=== PATIENT | male | born 1990 | race African-American/Black ===

== ENCOUNTER → 2018-08-10 | Outpatient (CLI) | payer OTHER | LOC: M RAD 09:22 | DX: M54.5 Low back pain (principal) ==

== ENCOUNTER 2020-11-06 18:19 | Inpatient (IN) | payer OTHER ==
[~2020-11-06] VITALS: Ht 185.4 cm; Wt 100.1 kg
[2020-11-06 18:56] LABS: BASO # 0.1 10^3/uL (0.0-0.2); BASO % 0.3 % (0.0-1.0); EOS # 0.1 10^3/uL (0.0-0.5); EOS % 0.5 % (0.0-3.0); HEMATOCRIT 48.8 % (42.0-52.0); HEMOGLOBIN 16.2 g/dl (13.5-17.5); LYMPH # 2.9 10^3/uL (1.5-5.0); LYMPH % 19.2 % (24.0-44.0); MEAN CORPUSCULAR HEMOGLOBIN 29.5 pg (27.0-33.0); MEAN CORPUSCULAR HGB CONC 33.2 g/dl (32.0-36.5); MEAN CORPUSCULAR VOLUME 88.9 fl (80.0-96.0); MONO # 2.2 10^3/uL (0.0-0.8); MONO % 14.4 % (0.0-5.0); NEUTROPHILS % 65.1 % (36.0-66.0); PLATELET COUNT, AUTOMATED 328 10^3/uL (150-450); RED BLOOD COUNT 5.49 10^6/uL (4.30-6.10); WHITE BLOOD COUNT 15.3 10^3/uL (4.0-10.0)
[2020-11-06] MEDS ORDERED: ISOVUE-370 76% 100ML VIAL As Ordered ONE (19:33)
--- NOTE | 2020-11-06 20:47 | REPVR ---
PROCEDURE INFORMATION: Exam: CT Neck With Contrast Exam date and time: 11/06/2020 7:43 PM Age: 30 years old Clinical indication: Throat pain; Additional info: Throat pain; Covid positive TECHNIQUE: Imaging protocol: Computed tomography images of the neck with intravenous contrast. Radiation optimization: All CT scans at this facility use at least one of these dose optimization techniques: automated exposure control; mA and/or kV adjustment per patient size (includes targeted exams where dose is matched to clinical indication); or iterative reconstruction. Contrast material: ISOVUE 370; Contrast volume: 75 ml; Contrast route: INTRAVENOUS (IV); COMPARISON: No relevant prior studies available. FINDINGS: Nasopharynx: Unremarkable. Oropharynx: The left tonsil is enlarged and edematous. There is a thick-walled left peritonsillar abscess measuring 3.3 x 2.5 cm. Right tonsil is unremarkable. Hypopharynx: Unremarkable. Larynx: Unremarkable. Normal epiglottis. Retropharyngeal space: Unremarkable. Submandibular/Parotid glands: Normal. Glands are normal in size. Thyroid: Normal. No enlarged or calcified nodules. Lymph nodes: Mild reactive cervical lymphadenopathy. Trachea: Visualized trachea is unremarkable. Lungs: Unremarkable as visualized. Bones/joints: Unremarkable. No acute fracture. Soft tissues: Unremarkable. No significant soft tissue swelling. IMPRESSION: Acute tonsillitis with large left peritonsillar abscess. Electronically signed by: Paxton Barrow On 11/06/2020 20:46:36 PM
[2020-11-06] MEDS ORDERED: HYDROCORTISONE INJection 1,000 MG in NS 50 ML IV ONE (21:00)
[2020-11-06] MEDS ORDERED: CLINDAMYCIN 900 MG in IV 1 EA IV ONE (21:00)
[2020-11-06] MEDS ORDERED: NS 1,000 ML IV ONE (21:00)
[2020-11-06 21:12] LABS: ALBUMIN 3.7 GM/DL (3.2-5.2); ALT/SGPT 24 U/L (12-78); BILIRUBIN,DIRECT 0.2 MG/DL (0.0-0.2); BILIRUBIN,TOTAL 1.2 MG/DL (0.2-1.0); TOTAL PROTEIN 9.3 GM/DL (6.4-8.2)
[2020-11-06 21:13] LABS: ERYTHROCYTE SEDIMENTATION RATE 4 mm/hr (0-15)
[2020-11-06] MEDS ORDERED: LIDOCAINE W/EPINEPHRINE 1% 20ML VIAL SC ONE (22:00)
--- NOTE | 2020-11-06 22:42 | HPEPDOC ---
[facility] Medical History & Physical Date of Admission Nov 06, 2020 Date of Service: Nov 06, 2020 Other Provider Adán Grimes Attending Physician: LORETA MOODY MD History and Physical TIME OF SERVICE: 1125pm CHIEF COMPLAINT: sore throat HISTORY OF PRESENT ILLNESS: This 30 yr old M w a hx of peritonsillar abscess 7 yrs ago was diagnosed with COVID 19 on Oct 23 and developed a sore throat with throat swelling 4 days ago. At the time of presentation to the hospital his throat pain was 9/10 in severity and radiated to his ear; after having 5-10ml of fluid drained by the pain improved to 7/10 in severity, but he continues to feel like his throat is swollen. He denied having a runny nose, cough, fever, chills, n/v/d or any other acute c/o. REVIEW OF SYSTEMS: 12-point review of systems negative except as listed in HPI PAST MEDICAL/ SURGICAL HISTORY: Chronic HTN Heart murmur Unspecified cardiac disorder Peritonsillar abscess 7 yrs ago SOCIAL HISTORY: He smokes, drinks occasionally, has a hx of recreational drug use, & is current incarcerated. FAMILY HISTORY: DM, HTN ALLERGIES: Please see below. HOME MEDICATIONS: Please see below. PHYSICAL EXAMINATION: Vital Signs Date Time Temp Pulse Resp B/P (MAP) Pulse Ox O2 Delivery O2 Flow Rate FiO2 11/06/20 18:19 98.8 104 20 136/84 (101) 96 Room Air GENERAL APPEARANCE: well nourished / well developed HEENT: EOMI/ MMM&P / mallampati score 3 therefore unable to visualize back of throat CARDIOVASCULAR: radial pulses intact/ no BLE edema MUSCULOSKELETAL: both wrists and ankles are in handcuffs NEUROLOGICAL: voice muffled but not dysarthric PSYCHIATRIC: A&Ox 3 LABORATORY DATA: 11/06/20 18:43 Total Bilirubin 1.2H, Direct Bilirubin 0.2, Aspartate Amino Transf (AST/SGOT) 28, Alanine Aminotransferase (ALT/SGPT) 24, Alkaline Phosphatase 97, C-Reactive Protein, Quantitative 14.50H, Total Protein 9.3H, Albumin 3.7, Albumin/Globulin Ratio 0.7 11/06/20 18:43: Immature Granulocyte % (Auto) 0.5, Neutrophils (%) (Auto) 65.1, Lymphocytes (%) (Auto) 19.2L, Monocytes (%) (Auto) 14.4H, Eosinophils (%) (Auto) 0.5, Basophils (%) (Auto) 0.3, Neutrophils # (Auto) 10.0H, Lymphocytes # (Auto) 2.9, Monocytes # (Auto) 2.2H, Eosinophils # (Auto) 0.1, Basophils # (Auto) 0.1, Nucleated Red Blood Cells % (auto) 0.0, Erythrocyte Sedimentation Rate 4 11/06/20 18:45: POC Glucose (Misc Panel) 125H, POC Sodium (Misc Panel) 138, POC Potassium (Misc Panel) 5.2H, POC Chloride (Misc Panel) 103, POC Total CO2 (Misc Panel) 32.0H, PO C Blood Urea Nitrogen (Misc Panel 32H, POC Ionized Calcium (Misc Panel) 4.5, POC Creatinine (Misc Panel) 1.0, POC Hematocrit (Misc Panel) 50.0 11/06/20 20:37: Lactic Acid Level 1.2 IMAGING: CT Neck IMPRESSION: Acute tonsillitis with large left peritonsillar abscess. MICROBIOLOGY: blood cx and fluid cx results pending ASSESSMENT: is a 30 yr old w a hx of peritonsillar abscess, HTN and heart murmur who developed a soar throat 8 days after being diagnosed with COVID 19; he underwent bedside drainage of the abscess and will be admitted for IV abx and steroids pending resolution of the throat swelling. PLAN: 1. Sepsis 2/2 acute tonsillitis and left peritonsillar abscess SIRS criteria include HR of 104 and WBC # of 15.3 Lactic acid was wnl; he also had non-diabetic hyperglycemia qSOFA score = 0 He received his first dose of abx in the ER Plan: admit to PCU/ continuous pulse ox, / will ask nurse to monitor dyspnea or worsening of throat swelling / c/w Clindamycin and Decadrone / f/u blood cx and abscess fluid cx / the day time team can f/u w on when the patient can in eat, in the meanwhile I will keep him NPO with D5NS, f/u FSBS Q6H and order Toradol for pain 2. COVID 19 Diagnosed on Oct 23 qCSI score = 0 Plan: continuous pulse ox / supplemental O2 up to 3L with target O2 sats between 92-95% / contact & air borne precautions / f/u repeat plts (if low indicates bad prognosis), CRP (if high indicates bad prognosis), INR, BMP, fibrinogen, INR, D- dimer, PT, PTT (if patient has DIC indicates bad prognosis), ferritin, LDH, pr ocalcitonin (if elevated will help rule out bacterial PNA), troponins / he is not a candidate for Remdesivir or Decadron 3. Chronic HTN Plan: hold oral meds bc of throat swelling / IV enalaprilat daily DVT Px w SCDs Dispo: dc after at least 2 midnights stay Home Medications Scheduled Amlodipine Besylate (Amlodipine Besylate) 10 Mg Tablet, 10 MG PO DAILY Hydrochlorothiazide (Hydrochlorothiazide) 25 Mg Tablet, 25 MG PO DAILY Miscellaneous Medications [Patient Comment] MED REC COMPLETED VIA PHONE CALL WITH NURSE FROM [facility] Allergies Coded Allergies: No Known Allergies (Unverified , 11/06/20) A-FIB/CHADSVASC A-FIB History Current/History of A-Fib/PAF?: No Current PO Anticoag Therapy: No LORETA MOODY MD Nov 06, 2020 22:42
[2020-11-06 23:22] LABS: CPK CREATINE PHOSPHOKINASE 315 U/L (39-308); FERRITIN 420 NG/ML (26-388); LDH LACTATE DEHYDROGENASE 329 U/L (87-241); MAGNESIUM LEVEL 2.6 MG/DL (1.8-2.4); NT-PRO BNP 21 PG/ML (<125); TROPONIN I < 0.02 NG/ML (< 0.10)
[2020-11-06] MEDS ORDERED: HYDR-3490 PO (23:39)
[2020-11-06] MEDS ORDERED: AMLO1TAB25 PO (23:39)
[2020-11-06] MEDS ORDERED: PATIENT COMMENT (23:39)
--- OUTSIDE RECORDS SUMMARY | 2020-11-06 23:39 | CCD ---
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 If such information is present, then the following federally mandated warning applies: This information has been disclosed to you from records protected by federal confidentiality rules (42 CFR part 2). The federal rules prohibit you from making any further disclosure of this information unless further disclosure is expressly permitted by the written consent of the person to whom it pertains or as otherwise permitted by 42 CFR part 2. A general authorization for the release of medical or other information is NOT sufficient for this purpose. The Federal rules restrict any use of the information to criminally investigate or prosecute any alcohol or drug abuse patient.The records that you are about to access may contain highly sensitive health information, the redisclosure of which is protected by Article 27-F of the [facility] Public Health law. If you continue you may have access to information: Regarding HIV / AIDS; Provided by facilities licensed or operated by the [facility] Office of Mental Health; or Provided by the [facility] Office for People With Developmental Disabilities. If such information is present, then the following [facility] mandated warning applies: This information has been disclosed to you from confidential records which are protected by state law. State law prohibits you from making any further disclosure of this information without the specific written consent of the person to whom it pertains, or as otherwise permitted by law. Any unauthorized further disclosure in violation of state law may result in a fine or detention sentence or both. A general authorization for the release of medical or other information is NOT sufficient authorization for further disc losure. Allergies and Adverse Reactions Type Description Substance Reaction Status Data Source(s ) Drug Class NO KNOWN ALLERGIES NO KNOWN ALLERGIES [facility] Encounters Encounter Providers Location Date Indications Data Source(s ) Outpatient Attender: Obed Cano [id number] 2019 12:00:00 AM EDT - 06/15/2020 09:30:16 AM EDT Preglaucoma, unspecified, bilateral [facility] Preglaucoma, unspecified, bilateral Medications Medication Brand Name Start Date Product Form Dose Route Admi nistrative Instructions Pharmacy Instructions Status Indications Reaction Description Data Source(s) Proparacaine hydrochloride 5 MG/ML Ophth almic Solution proparacaine (ALCAINE) 0.5 % ophthalmic solution 1 drop proparacaine (ALCAINE) 0.5 % ophthalmic solution 1 drop 06/15/2020 08:15:00 AM EDT 1 [drp] Both Eyes completed 1 drop, Both Eyes, Once, Thu06/15/20 at 0815, For 1 dos e [facility] Medication administered onsite Tropicamide 10 MG/ML Ophthalmic Solution tropicamide (MYDRIACYL) 1 % ophthalmic solution 1 drop tropicamide (MYDRIACYL) 1 % ophthalmic solution 1 drop 06/15/2020 08:15:00 AM EDT 1 [drp] Both Eyes completed 1 drop, Both Eyes, Once, Thu06/15/20 at 0815, For 1 dose [facility] Medication administered onsite Phenylephrine Hydrochloride 25 MG/ML Oph thalmic Solution phenylephrine (MYDFRIN) 2.5 % ophthalmic solution 1 drop phenylephrine (MYDFRIN) 2.5 % ophthalmic solution 1 drop 06/15/2020 08:15:00 AM EDT 1 [drp] Both Eyes completed 1 drop, Both Eyes, Once, Thu06/15/20 at 0815, For 1 dos e [facility] Medication administered onsite Insurance Providers Payer name Policy type / Coverage type Policy ID Covered libertarian ID Covered libertarian's relationship to kelley Policy Kelley Plan Information [place] [employer] [id number] SP [id number] CORRECTIONS B [id number] Self [id number] [facility] DEPT.OF CORRECTIONAL O [id number] O [id number] [employer] MEDICAID [id number] Patient [id number] MEDICAID ([id number]) [id number] HMB OPTIONS (368) [id number] MEDICAID [id number] PT [id number] [employer] MEDICAID [id number] PT [id number] [employer] MED[place] [id number] PT [id number] SELF PAY SELF PAY PT SELF PAY Problems, Conditions, and Diagnoses Code Display Name Description Problem Type Effective Dates Data Source(s) H40.003 Preglaucoma, unspecified, bilateral Preglaucoma, unspecified, bilateral Diagnosis 06/15/2020 08:00:05 AM EDT [facility] Surgeries/Procedures Procedure Description Date Indications Data Source(s) COLOR FUNDUS PHOTOGRAPHY - OU - BOTH EYES COLOR FUNDU S PHOTOGRAPHY - OU - BOTH EYES Routine 06/15/2020 9:28 AM EDT Glaucoma suspect of both eyes 06/15/2020 09:28:59 AM EDT Gla ucoma suspect of both eyes [facility] Glaucoma suspect of both eyes US EXAM OF EYE THICKNESS US EXAM OF EYE THICKNESS Routine 06/15/2020 8:46 AM EDT Glaucoma suspect of both eyes 06/15/2020 08:46:33 AM EDT Gla ucoma suspect of both eyes [facility] Glaucoma suspect of both eyes POSTERIOR SEGMENT OCT (OCULAR COHERENCE TOMOGRAPHY) - OU - BOTH EYES POSTERIOR SEGMENT OCT (OCULAR COHERENCE TOMOGRAPHY) - OU - BOTH EYES Routine 06/15/2020 8:46 AM EDT Glaucoma suspect of both eyes 06/15/2020 08:46:08 AM EDT Gla ucoma suspect of both eyes [facility] Glaucoma suspect of both eyes Results ID Date Data Source [id number] 10/23/2020 12:00:00 AM EST [facility] Name Value Range Interpretation Code Description Data Amie rce(s) Supporting Document(s) SARS-CoV-2 (COVID-19) RNA [Presence] in Respiratory specimen by KENIA with probe detection Positive for 2019-nCoV [facility] This lab was ordered by JULIUS DAVISON and reported by [employer]. ID Date Data Source [id number] 06/15/2020 12:09:42 PM EDT [facility] Name Value Range Interpretation Code Description Data Amie rce(s) Supporting Document(s) Progress Note [facility] [id number] [file] [id number] Procedure Social History Code Duration Value Status Description Data Source(s ) Alcohol intake 06/15/2020 12:00:00 AM EDT Ex-drinker (finding) comp leted Ex- drinker (finding) [facility] Tobacco use and exposure 06/15/2020 12:00:00 AM EDT Never used co mpleted Never used [facility] Smoking 06/15/2020 12:00:00 AM EDT Current every day smoker co mpleted Current every day smoker [facility] Patient Treatment Plan of Care Planned Activity Planned Date Details Description Data Source (s) Proparacaine hydrochloride 5 MG/ML Ophthalmic Solution 06/15/2020 08:15:00 AM EDT [facility] Phenylephrine Hydrochloride 25 MG/ML Ophthalmic Soluti on 06/15/2020 08:15:00 AM EDT [facility] Tropicamide 10 MG/ML Ophthalmic Solution 06/15/2020 08:15:00 AM T [facility]
[2020-11-07] MEDS ORDERED: KETOROLAC 30 MG/ML 1ML VIAL IV ONE
[2020-11-07] MEDS ORDERED: D5W/0.9% SODIUM CHLORIDE 1,000 ML IV SCH (00:01)
[2020-11-07] MEDS ORDERED: KETOROLAC 30 MG/ML 1ML VIAL IV PRN (00:15)
[2020-11-07 00:24] LABS: INR 1.11; PARTIAL THROMBOPLASTIN TIME 28.2 SECONDS (24.2-38.5); PROTHROMBIN TIME 14.5 SECONDS (12.5-14.3)
[2020-11-07 00:27] LABS: D-DIMER QUANT 2889.81 ng/ml (<500)
[2020-11-07 00:50] VITALS: O2SAT 98
[2020-11-07 00:51] VITALS: BP 147/89
[2020-11-07 04:00] VITALS: BP 126/56; O2SAT 95
[2020-11-07] MEDS: dexameTHASONE 20MG/5ML VIAL (J1100 PER 1MG) IV SCH ×2 (04:40→11:32)
[2020-11-07] MEDS: CLINDAMYCIN 900 MG in IV 1 EA IV SCH ×2 (04:40→11:32)
[2020-11-07 05:58] LABS: HEMATOCRIT 44.9 % (42.0-52.0); HEMOGLOBIN 14.8 g/dl (13.5-17.5); MEAN CORPUSCULAR HEMOGLOBIN 29.5 pg (27.0-33.0); MEAN CORPUSCULAR VOLUME 89.4 fl (80.0-96.0); PLATELET COUNT, AUTOMATED 302 10^3/uL (150-450); RED BLOOD COUNT 5.02 10^6/uL (4.30-6.10); WHITE BLOOD COUNT 9.7 10^3/uL (4.0-10.0)
[2020-11-07 06:28] LABS: BLOOD UREA NITROGEN 25 MG/DL (7-18); CALCIUM LEVEL 9.3 MG/DL (8.5-10.1); CARBON DIOXIDE LEVEL 26 MEQ/L (21-32); CHLORIDE LEVEL 106 MEQ/L (98-107); CREATININE FOR GFR 1.11 MG/DL (0.70-1.30); GLOMERULAR FILTRATION RATE > 60.0 (>60); GLUCOSE, FASTING 137 MG/DL (70-100); POTASSIUM SERUM 4.6 MEQ/L (3.5-5.1); SODIUM LEVEL 141 MEQ/L (136-145)
[2020-11-07 08:00] VITALS: BP 131/75; O2SAT 99
[2020-11-07 08:05] VITALS: BP 131/75
[2020-11-07 08:29] LABS: D-DIMER QUANT 2618.48 ng/ml (<500)
[2020-11-07] MEDS ORDERED: ENALAPRILAT INJ 2.5MG/2ML VIAL IV SCH (09:00)
[2020-11-07] MEDS ORDERED: CLIN150C15 PO (10:09)
[2020-11-07 11:22] VITALS: BP 129/75
[2020-11-07] MEDS ORDERED: DEXA6TAB PO (12:31)
--- NOTE | 2020-11-07 12:38 | DS.PDOC ---
Discharge Summary General Date of Admission Nov 06, 2020 at 22:31 Date of Discharge 11/07/2020 Discharge Summary PROCEDURES PERFORMED DURING STAY: Abscess incision and drainage at bedside with Dr. Laughlin on 11/06/20 ADMITTING DIAGNOSES / DISCHARGE DIAGNOSES: s/p Sepsis 2/2 acute tonsillitis and left peritonsillar abscess s/p COVID-19 Chronic HTN DVT prophylaxis COMPLICATIONS/CHIEF COMPLAINT: Sore throat HISTORY OF PRESENT ILLNESS: Patient is a 30 year old male with a PMHx of HTN and COVID-19 diagnosed (10/23) who presented to the ER with sore throat / swelling for 4 days. In the emergency room, patient had a CT scan that was consistent with a peritonsillar abscess. Patient had abscess drained in the ER with Dr. Laughlin. He was subsequently admitted to hospital service for further evaluation and treatment. This morning. Patient denies any chest pain, shortness breath or palpitations. Reports that he has had improvement of his ability to swallow. He was trialed on a clear liquid diet was able to tolerate and his diet was subsequently advanced. Patient denies any abdominal pain. Patient denies any diarrhea, or urinary discomfort. HOSPITAL COURSE: s/p Sepsis 2/2 acute tonsillitis and left peritonsillar abscess - Currently patient reports improvement of his sore throat and improvement of his ability to swallow - Patient remains hemodynamically stable and afebrile - Leukocytosis resolved and inflammatory markers are improving - s/p I&D in the ER with Dr. Laughlin 11/06 - c/w Clindamycin; will transition to PO - Patient has been able to tolerate an oral diet, which was slowly advanced - Case discussed with Dr. Laughlin; will continue clindamycin; will transition to PO and have outpatient follow up - Will have outpatient follow-up with primary care provider and ENT within the next 7 days s/p COVID-19 - Currently denies any CP, SOB or palpitations - COVID positive on 10/23 - c/w supportive care Chronic HTN - BP well controlled - c/w Home medications DVT prophylaxis - c/w TEDs/Sequentials DISCHARGE MEDICATIONS: Please see below. ALLERGIES: Please see below. PHYSICAL EXAMINATION ON DISCHARGE: Vitals (See below) General: Lying in bed, appears comfortable, AAOx3 HEENT: NC, AT, left peritonsillar swelling CVS: +S1S2 Lungs: Fair air entry b/l, auscultation is free of rhonchi, rales or wheezing Abdomen: Soft, ND, NT Extremities: No evidence of edema, - Calf tenderness LABORATORY DATA: Please see below. IMAGING: CT Neck 11/06: Acute tonsillitis with large left peritonsillar abscess. ACTIVITY: [As tolerated]. DISCHARGE PLAN: Please follow-up with primary care provider and ENT within the next 7 days Remain compliant with treatment plan and medications Return to the ER if you experience any problems DISPOSITION: Home / Snf DISCHARGE CONDITION: [Stable]. TIME SPENT ON DISCHARGE: 35 minutes. Vital Signs/I&Os Vital Signs Date Time Temp Pulse Resp B/P (MAP) Pulse Ox O2 Delivery O2 Flow Rate FiO2 11/07/20 08:05 131/75 11/07/20 08:00 98.0 66 12 98 Room Air I&O- Last 24 Hours up to 6 AM 11/07/20 06:00 Intake Total 1108 ml Output Total 125 ml Balance 983 ml Laboratory Data Labs 24H Laboratory Tests 2 11/06/20 18:39: Magnesium Level 2.6H, Ferritin 420H, Total Bilirubin 1.2H, Direct Bilirubin 0.2, Aspartate Amino Transf (AST/SGOT) 28, Alanine Aminotransferase (ALT/SGPT) 24, Alkaline Phosphatase 97, Lactate Dehydrogenase 329H, Total Creatine Kinase 315H, Troponin I < 0.02, C-Reactive Protein, Quantitative 14.50H, VM-Fmt-Q-Type Natriuretic Peptide 21, Total Protein 9.3H, Albumin 3.7, Albumin/Globulin Ratio 0.7 11/06/20 18:43: Immature Granulocyte % (Auto) 0.5, Neutrophils (%) (Auto) 65.1, Lymphocytes (%) (Auto) 19.2L, Monocytes (%) (Auto) 14.4H, Eosinophils (%) (Auto) 0.5, Basophils (%) (Auto) 0.3, Neutrophils # (Auto) 10.0H, Lymphocytes # (Auto) 2.9, Monocytes # (Auto) 2.2H, Eosinophils # (Auto) 0.1, Basophils # (Auto) 0.1, Nucleated Red Blood Cells % (auto) 0.0, Erythrocyte Sedimentation Rate 4 11/06/20 18:45: POC Glucose (Misc Panel) 125H, POC Sodium (Misc Panel) 138, POC Potassium (Misc Panel) 5.2H, POC Chloride (Misc Panel) 103, POC Total CO2 (Misc Panel) 32.0H, POC Blood Urea Nitrogen (Misc Panel 32H, POC Ionized Calcium (Misc Panel) 4.5, POC Creatinine (Misc Panel) 1.0, POC Hematocrit (Misc Panel) 50.0 11/06/20 20:37: Lactic Acid Level 1.2 11/06/20 23:50: Prothrombin Time 14.5H, Prothromb Time International Ratio 1.11, Activated Partial Thromboplast Time 28.2, Fibrinogen 707H, D-Dimer, Quantitative 2889.81H 11/07/20 00:54: Fibrinogen 740H, D-Dimer, Quantitative 2618.48H, Ferritin 381, Lactate Dehydrogenase 165, C-Reactive Protein, Quantitative 10.00H 11/07/20 00:58: Bedside Glucose (Misc Panel) 109H 11/07/20 05:47: Nucleated Red Blood Cells % (auto) 0.0, Anion Gap 9, Glomerular Filtration Rate > 60.0, Calcium Level 9.3 CBC/BMP Laboratory Tests 11/06/20 18:43 11/07/20 05:47 FSBS Laboratory Tests Test 11/07/20 00:58 Range/Units Bedside Glucose (Misc Panel) 109 70-105 MG/DL Microbiology Microbiology 11/06/20 Blood Culture, Received Pending 11/06/20 Blood Culture, Received Pending Discharge Medications Scheduled Amlodipine Besylate (Amlodipine Besylate) 10 Mg Tablet, 10 MG PO DAILY, (Reported) Clindamycin Hcl (Clindamycin HCl) 150 Mg Capsule, 600 MG PO TID Hydrochlorothiazide (Hydrochlorothiazide) 25 Mg Tablet, 25 MG PO DAILY, (Reported) Allergies Coded Allergies: No Known Allergies (Unverified , 11/06/20) CRIS LIU MD Nov 07, 2020 12:38
--- NOTE | 2020-11-08 14:43 | RO ---
OPERATIVE NOTE DATE OF OPERATION: 11/07/2020 The patient presents to the emergency department with a history of sore throat which has been increasing. The patient presented to the emergency department with sore throat, difficulty swallowing worse on the left side. The patient had a CT scan, which showed a peritonsillar abscess. PHYSICAL EXAMINATION: Shows the patient alert and oriented. He had reduced excursion of the mandible. Examination of the back of the throat showed edema of the anterior pillar and the tonsil pushed medially. The location of the abscess was confirmed with the CT scan. PROCEDURE: I infiltrated the area with lidocaine, epinephrine. I inserted a needle and aspirated 6 ml of purulent fluid. I then made an incision and opened the area and suctioned further fluid. IMPRESSION: Left peritonsillar abscess. PLAN: The patient will be admitted and placed on IV antibiotics and steroids and discharged as soon as he feels better.
== END 2020-11-07 13:07 | disposition home or self-care (01) | DRG 710 ==
LOC: M ED 18:19 → M ED INP 22:31 → ENRESERV 11-07 00:08 → M ICU 11-07 00:44
PROVIDERS: ADMIT Internal Medicine; ATTEND Internal Medicine
PROC: 0C9P0ZZ Drainage of Tonsils, Open Approach (ICD-10-PCS; principal; 2020-11-07)
DX: A41.9 Sepsis, unspecified organism (principal); I10 Essential (primary) hypertension; J36 Peritonsillar abscess; Z79.899 Other long term (current) drug therapy; F17.200 Nicotine dependence, unspecified, uncomplicated